=== PATIENT | female | born 1970 | race Caucasian/White ===

== ENCOUNTER 2020-09-07 15:33 | Outpatient (REF) | payer MEDICAID, SELFPAY | END 2020-09-07 15:34 | disposition home or self-care (01) | LOC: HO.HAP 15:33 | PROVIDERS: PCP Hospitalist; Referring Provider Hospitalist; Visit Provider Hospitalist | DX: H90.3 Sensorineural hearing loss, bilateral (principal); Z46.1 Encounter for fitting and adjustment of hearing aid | CPT/HCPCS: V5266 ==

== ENCOUNTER 2020-12-01 13:54 | Outpatient (REF) | payer MEDICAID, SELFPAY | END 2020-12-01 13:55 | disposition home or self-care (01) | LOC: HO.HAP 13:54 | PROVIDERS: Visit Provider Hospitalist | DX: Z46.1 Encounter for fitting and adjustment of hearing aid (principal) | CPT/HCPCS: V5266 ==

== ENCOUNTER 2021-02-09 10:51 | Outpatient (REF) | payer MEDICAID, SELFPAY ==
--- NOTE | 2021-02-09 11:10 | MHC.AU.P13 ---
Hearing Instrument Maintenance Date of Visit: 02/09/21 Right Ear: Malted Milk Masher: Phonak Model: Leticia M70-SP Serial Number: [id number] Repair Warranty: 08/10/2023 Battery Size: 13 Tubing: Tube lock tubing Type of Mold: Colin standard Canal mold Type of Wax Guard: Left Ear: Malted Milk Masher: Phonak Model: Leticia M70-SP Serial Number: [id number] Repair Warranty: 08/10/2023 Loss and Damage Warranty: Service Plan: Battery Size: 13 Type of Mold: Colin standard Canal mold Follow-Up Summary: Hearing aids brought in for tubing change. Hearing aids cleaned and tubings changed - both amplifying clearly. Recommendations: Recommendations: Hearing instrument follow-up or maintenance as needed. Signature: Provider: MYNOR Skaggs
== END 2021-02-09 10:52 | disposition home or self-care (01) ==
LOC: HO.HAP 10:51
PROVIDERS: Visit Provider Hospitalist
DX: Z46.1 Encounter for fitting and adjustment of hearing aid (principal)
CPT/HCPCS: V5266

== ENCOUNTER 2021-02-09 11:20 | Outpatient (REF) | payer MEDICAID, SELFPAY | END 2021-02-09 11:21 | disposition home or self-care (01) | LOC: HO.MAMMO 11:20 | PROVIDERS: PCP Hospitalist; Visit Provider Nurse Practitioner Adult Health | DX: Z13.89 Encounter for screening for other disorder (principal) ==

== ENCOUNTER 2021-03-27 15:00 | Outpatient (REF) | payer MEDICAID, SELFPAY | END 2021-03-27 15:01 | disposition home or self-care (01) | LOC: HO.HAP 15:00 | PROVIDERS: Visit Provider Hospitalist | DX: Z13.89 Encounter for screening for other disorder (principal) ==

== ENCOUNTER 2021-04-04 15:44 | Outpatient (REF) | payer MEDICAID, SELFPAY | END 2021-04-04 15:45 | disposition home or self-care (01) | LOC: HO.HAP 15:44 | PROVIDERS: Visit Provider Hospitalist | DX: Z13.89 Encounter for screening for other disorder (principal) ==

== ENCOUNTER 2021-06-22 09:45 | Outpatient (REF) | payer MEDICAID, SELFPAY ==
--- NOTE | 2021-06-22 16:06 | MHC.AU.AHA ---
Adult Audiological Evaluation Date of Visit: 06/22/21 Reason for Appointment: Audiological re-evaluation due to monitor the status of Ms. Olmstead's hearing loss. She has a longstanding history of bilateral mixed hearing loss and hearing aid use. She denies any significant changes to her hearing, but notes that she typically uses the volume control on her hearing aids to turn them up as loud as she can. She denies any changes to her medical history since her last visit. [place] [facility] [place] Bilateral moderately-severe to profound mixed hearing loss with the left ear poorer from 4361-7410 Hz. Ear History: Previous Ear Surgery: Both Ears Medical History: Medical History: Unremarkable Hearing Instrument History- Right Ear: Systems Qa Analyst: ECKey Model: Blue Tornado M70-SP Serial Number: [id number] Battery Size: 13 Repair Warranty: 08/10/2023 Loss and Damage Warranty: 08/10/2023 Dispensed By: [facility] Date of Fittin05/19/2020 Hearing Instrument History- Left Ear: Systems Qa Analyst: Phonak Model: Leticia M70-SP Serial Number: [id number] Battery Size: 13 Warranty: 08/10/2023 Loss and Damage Warranty: 08/10/2023 Dispensed By: [facility] Date of Fittin05/19/2020 Otoscopy: Right Ear: Surgical ear, clear canal Left Ear: Surgical ear, clear canal Tympanometry: Tympanometry performed due to: History of middle ear dysfunction Right Ear: Non-compliant Middle Ear System (Type B) Left Ear: Non-compliant Middle Ear System (Type B) Hearing Evaluation: Transducer(s) Used: Insert Earphones, Bone Conduction Method: Conventional Audiometry Stimuli Used: Pure Tones Right Ear: Description of Hearing: Moderately severe sloping to profound mixed hearing loss from 250-8000 Hz. Left Ear: Description of Hearing: Severe to profound mixed hearing loss from 250-8000 Hz. Hearing in the left ear is 10-20+ dBHL worse than the right ear at 250 and 3008-4497 Hz. Speech Recognition Threshold (SRT): Method Used: Monitored Live Voice Stimuli Used: Spondee Words Right Ear: 65 dBHL Left Ear: 70 dBHL Word Discrimination: Method: Recorded Lists Word Lists Used: NU-6 Right Ear: 72% at 100 dBHL Left Ear: 84% at 100 dBHL Comparison: Compared to the most recent evaluation: Thresholds have decreased in the left ear. Recommendations: Audiological re-evaluation in one year. Hearing aid maintenance performed today. Hearing aid(s) reprogrammed with updated test results. New earmolds ordered today. Diagnosis: Primary Diagnosis: H90.6 Mixed Hearing Loss, Bilateral Services Performed: Comprehensive Audiological Evaluation (CPT 32657) Tympanometry (CPT 13920) Signature: Provider: Marina Lima, CCC-A
== END 2021-06-22 09:46 | disposition home or self-care (01) ==
LOC: HO.SH 09:45
PROVIDERS: Visit Provider Hospitalist
DX: Z46.1 Encounter for fitting and adjustment of hearing aid (principal); H90.6 Mixed conductive and sensorineural hearing loss, bilateral
CPT/HCPCS: 92557; 92567; 92593; V5266; V5275

== ENCOUNTER 2021-07-24 16:49 | Outpatient (REF) | payer MEDICAID, SELFPAY | END 2021-07-24 16:50 | disposition home or self-care (01) | LOC: HO.HAP 16:49 | PROVIDERS: Visit Provider Hospitalist | DX: Z46.1 Encounter for fitting and adjustment of hearing aid (principal); H90.6 Mixed conductive and sensorineural hearing loss, bilateral | CPT/HCPCS: V5264 ==

== ENCOUNTER 2021-08-11 11:04 | Outpatient (REF) | payer MEDICAID, SELFPAY ==
--- NOTE | ~2021-08-11 | MM_ITS ---
EXAMINATION: MM SCREENING DIGITAL BREAST TOMOSYNTHESIS, BILATERAL CLINICAL INFORMATION: Screening. Asymptomatic. The lifetime risk of breast cancer based on the Tyrer-Cuzick Model is 6%. COMPARISON: Mammography: 05/05/2020, 04/27/2020, 04/22/2019, 03/27/2018 TECHNIQUE: Digital breast tomosynthesis is performed in both the craniocaudal and mediolateral oblique views along with computer-aided detection (CAD). Synthesized 2D images are generated from the tomosynthesis. Additional right CC view is provided. FINDINGS: The breasts are almost entirely fatty (ACR BI-RADS breast composition Category a). Background stromal and fibroglandular densities are stable. No developing density. There are no significant masses, abnormal calcifications, or other abnormalities. MM/MM tomosynthesis screening BI IMPRESSION: No mammographic evidence of malignancy. ASSESSMENT: BI-RADS 1: Negative RECOMMENDATION: Routine annual mammography screening. This patient's information was entered into a reminder system with a target due date for their next mammogram.
== END 2021-08-11 11:05 | disposition home or self-care (01) ==
LOC: HO.MAMMO 11:04
PROVIDERS: Visit Provider Hospitalist
DX: Z12.31 Encounter for screening mammogram for malignant neoplasm of breast (principal)
CPT/HCPCS: 77063; 77067

== ENCOUNTER 2021-09-25 15:50 | Outpatient (REF) | payer MEDICAID, SELFPAY | END 2021-09-25 15:51 | disposition home or self-care (01) | LOC: HO.HAP 15:50 | PROVIDERS: Visit Provider Hospitalist | DX: Z46.1 Encounter for fitting and adjustment of hearing aid (principal); H90.6 Mixed conductive and sensorineural hearing loss, bilateral | CPT/HCPCS: V5266 ==

== ENCOUNTER 2021-10-31 10:47 | Outpatient (REF) | payer MEDICAID, SELFPAY ==
[2021-10-31 11:18] LABS: COVID-19 Test Positive (Negative)
== END 2021-10-31 10:48 | disposition home or self-care (01) ==
LOC: HO.LAB 10:47
PROVIDERS: Visit Provider Internal Medicine
DX: Z20.822 Contact with and (suspected) exposure to COVID-19 (principal)
CPT/HCPCS: 87635; C9803

== ENCOUNTER 2021-11-17 11:28 | Outpatient (REF) | payer MEDICAID, SELFPAY ==
--- NOTE | 2021-11-17 13:32 | MHC.AU.HFU ---
Hearing Instrument Follow-Up- Binaural Date of Visit: 11/17/21 Right Ear: Bread Panner: Phonak Model: Lteicia M70-SP Serial Number: [id number] Repair Warranty: 08/10/2023 Loss and Damage Warranty: 08/10/2023 Battery Size: 13 Color: Cherokee Type of Mold: Colin standard Canal mold Dispensed By: [facility] Date of Fittin05/19/2020 Left Ear: Bread Panner: Phonak Model: Leticia M70-SP Serial Number: [id number] Repair Warranty: 08/10/2023 Loss and Damage Warranty: 08/10/2023 Battery Size: 13 Color: Cherokee Type of Mold: Colin standard Canal mold Dispensed By: [facility] Date of Fittin05/19/2020 Follow-Up Summary: Patient requested tubing change, as her tubing was starting to become brittle. Molds cleaned and tubing replaced on both hearing aids. General maintenance performed on both instruments. Hearing aids are amplifying clearly. Recommendations: Recommendations: Hearing instrument follow-up or maintenance as needed. Diagnosis Code(s): Primary Diagnosis: H90.3 Bilateral Sensorineural Hearing Loss Signature: Provider: Marina Brooks, CCC-A
== END 2021-11-17 11:29 | disposition home or self-care (01) ==
LOC: HO.HAP 11:28
PROVIDERS: Visit Provider Hospitalist
DX: Z46.1 Encounter for fitting and adjustment of hearing aid (principal); H90.3 Sensorineural hearing loss, bilateral
CPT/HCPCS: 92593

== ENCOUNTER 2021-12-21 14:44 | Outpatient (REF) | payer MEDICAID, SELFPAY ==
--- NOTE | 2021-12-21 15:40 | MHC.AU.HFU ---
Hearing Instrument Follow-Up- Binaural Date of Visit: 12/21/21 Right Ear: Nitric Acid Concentrator Operator: Phonak Model: Leticia M70-SP Serial Number: [id number] Repair Warranty: 08/10/2023 Loss and Damage Warranty: 08/10/2023 Battery Size: 13 Color: Hosmer Tubing: Tube lock tubing Type of Mold: Colin standard Canal mold Type of Wax Guard: Dispensed By: [facility] Date of Fittin05/19/2020 Left Ear: Nitric Acid Concentrator Operator: Phonak Model: Leticia M70-SP Serial Number: [id number] Repair Warranty: 08/10/2023 Loss and Damage Warranty: 08/10/2023 Battery Size: 13 Color: Hosmer Tubing: Tube lock tubing Type of Mold: Colin standard Canal mold Type of Wax Guard: Dispensed By: [facility] Date of Fittin05/19/2020 Follow-Up Summary: Patient reports the earmolds come off the tubing. Changed to 13 tube lock for both aids. Patient will try and schedule appointment if any concerns. Dispensed 42 batteries. Recommendations: Hearing instrument follow-up or maintenance as needed.Please contact our clinic with any questions or concerns. Diagnosis Code(s): Primary Diagnosis: H90.3 Bilateral Sensorineural Hearing Loss Services Performed: Number of Individual Battery Cells: 42 OBANDO Non-Quantity Charges: HANC: NonBillable Event Signature:Provider: Harish Nair, [facility]
== END 2021-12-21 14:45 | disposition home or self-care (01) ==
LOC: HO.HAP 14:44
PROVIDERS: Visit Provider Hospitalist
DX: Z46.1 Encounter for fitting and adjustment of hearing aid (principal); H90.3 Sensorineural hearing loss, bilateral
CPT/HCPCS: V5266

== ENCOUNTER 2022-02-16 11:31 | Outpatient (REF) | payer MEDICAID, SELFPAY | END 2022-02-16 11:32 | disposition home or self-care (01) | LOC: HO.HAP 11:31 | PROVIDERS: PCP Physician Assistant; Visit Provider Physician Assistant | DX: Z46.1 Encounter for fitting and adjustment of hearing aid (principal); H90.3 Sensorineural hearing loss, bilateral | CPT/HCPCS: 92593; V5275 ==

== ENCOUNTER 2022-02-27 12:48 | Outpatient (REF) | payer MEDICAID, SELFPAY | END 2022-02-27 12:49 | disposition home or self-care (01) | LOC: HO.HAP 12:48 | PROVIDERS: Visit Provider Physician Assistant | DX: Z46.1 Encounter for fitting and adjustment of hearing aid (principal); H90.3 Sensorineural hearing loss, bilateral | CPT/HCPCS: 92593 ==

== ENCOUNTER 2022-03-07 13:10 | Outpatient (REF) | payer MEDICAID, SELFPAY ==
--- NOTE | 2022-03-07 15:19 | MHC.AU.FUL ---
Hearing Instrument Follow-Up Date of Visit: 03/07/22 Left Ear: Roller Turner: Phonak Model: Leticia M70-SP Serial Number: [id number] Repair Warranty: 08/10/2023 Loss and Damage Warranty: 08/10/2023 Battery Size: 13 Color: Circle Tubing: Tube lock tubing Type of Mold: Colin standard Canal mold Type of Wax Guard: Dispensed By: [facility] Date of Fittin05/19/2020 Follow-Up Summary: Patient reports over the past few days, the left aid has static sound quality. After last visit and for the next few days the aids were fine, but then changed over the very humid weekend. Visual inspection indicated moisture in the left tubing. Changed tubing, but aid still had static. Placed aid in the dryer for several minutes with some help, but still had static. Sending aid out for repair under warranty. Programmed a left Phonak Leticia B-SP loaner aid to use with her current earmold. Recommendations (Other): Still waiting for binaural new earmolds. Contact patient when repair in. Diagnosis Code(s):Primary Diagnosis: H90.3 Bilateral Sensorineural Hearing Loss Services Performed:OBANDO Non-Quantity Charges: HANC: NonBillable Event Signature:Provider: Harish Nair, CCC-A
== END 2022-03-07 13:11 | disposition home or self-care (01) ==
LOC: HO.HAP 13:10
PROVIDERS: Visit Provider Physician Assistant
DX: Z13.89 Encounter for screening for other disorder (principal)

== ENCOUNTER 2022-03-21 10:24 | Outpatient (REF) | payer MEDICAID, SELFPAY | END 2022-03-21 10:25 | disposition home or self-care (01) | LOC: HO.HAP 10:24 | PROVIDERS: Visit Provider Physician Assistant | DX: Z46.1 Encounter for fitting and adjustment of hearing aid (principal); H90.3 Sensorineural hearing loss, bilateral | CPT/HCPCS: V5264 ==

== ENCOUNTER 2022-03-23 12:39 | Outpatient (REF) | payer MEDICAID, SELFPAY | END 2022-03-23 12:40 | disposition home or self-care (01) | LOC: HO.HAP 12:39 | PROVIDERS: Visit Provider Physician Assistant | DX: Z46.1 Encounter for fitting and adjustment of hearing aid (principal); H90.3 Sensorineural hearing loss, bilateral | CPT/HCPCS: V5266 ==

== ENCOUNTER 2022-06-25 12:58 | Outpatient (REF) | payer MEDICAID, SELFPAY | END 2022-06-25 12:59 | disposition home or self-care (01) | LOC: HO.HAP 12:58 | PROVIDERS: Visit Provider Physician Assistant | DX: Z46.1 Encounter for fitting and adjustment of hearing aid (principal); H90.3 Sensorineural hearing loss, bilateral | CPT/HCPCS: V5266 ==

== ENCOUNTER 2022-08-13 09:14 | Outpatient (REF) | payer MEDICAID, SELFPAY ==
--- NOTE | ~2022-08-13 | MM_ITS ---
EXAMINATION: MM SCREENING DIGITAL BREAST TOMOSYNTHESIS, BILATERAL CLINICAL INFORMATION: Screening. Asymptomatic. The lifetime risk of breast cancer based on the Tyrer-Cuzick Model is 6.7%. COMPARISON: Mammography: August 11, 2021 and studies dating back to January 24, 2015 TECHNIQUE: Digital breast tomosynthesis is performed in both the craniocaudal and mediolateral oblique views along with computer-aided detection (CAD). Synthesized 2D images are generated from the tomosynthesis. FINDINGS: The breasts are almost entirely fatty (ACR BI-RADS breast composition Category a). There are no significant masses, abnormal calcifications, or other abnormalities. MM/MM tomosynthesis screening BI IMPRESSION: No significant changes from prior exam. ASSESSMENT: BI-RADS 1: Negative RECOMMENDATION: Routine annual mammography screening. This patient's information was entered into a reminder system with a target due date for their next mammogram.
== END 2022-08-13 09:15 | disposition home or self-care (01) ==
LOC: HO.MAMMO 09:14
PROVIDERS: Visit Provider Physician Assistant
DX: Z12.31 Encounter for screening mammogram for malignant neoplasm of breast (principal)
CPT/HCPCS: 77063; 77067

== ENCOUNTER 2022-08-20 09:57 | Outpatient (REF) | payer MEDICAID, SELFPAY | END 2022-08-20 09:58 | disposition home or self-care (01) | LOC: HO.SH 09:57 | PROVIDERS: Visit Provider Internal Medicine | DX: Z01.118 Encounter for examination of ears and hearing with other abnormal findings (principal); Z46.1 Encounter for fitting and adjustment of hearing aid; H90.6 Mixed conductive and sensorineural hearing loss, bilateral | CPT/HCPCS: 92557; 92593; 99499 ==

== ENCOUNTER 2022-09-24 15:35 | Outpatient (REF) | payer MEDICAID, SELFPAY | END 2022-09-24 15:36 | disposition home or self-care (01) | LOC: HO.HAP 15:35 | PROVIDERS: Visit Provider Physician Assistant | DX: Z46.1 Encounter for fitting and adjustment of hearing aid (principal); H90.6 Mixed conductive and sensorineural hearing loss, bilateral | CPT/HCPCS: V5266 ==

== ENCOUNTER 2022-09-25 12:35 | Outpatient (REF) | payer MEDICAID, SELFPAY | END 2022-09-25 12:36 | disposition home or self-care (01) | LOC: HO.HAP 12:35 | PROVIDERS: Visit Provider Physician Assistant | DX: Z13.89 Encounter for screening for other disorder (principal) ==

== ENCOUNTER 2022-10-16 12:42 | Outpatient (REF) | payer MEDICAID, SELFPAY | END 2022-10-16 12:43 | disposition home or self-care (01) | LOC: HO.HAP 12:42 | PROVIDERS: Visit Provider Physician Assistant | DX: Z13.89 Encounter for screening for other disorder (principal) ==

== ENCOUNTER 2022-12-06 10:10 | Outpatient (REF) | payer MEDICAID, SELFPAY | END 2022-12-06 10:11 | disposition home or self-care (01) | LOC: HO.HAP 10:10 | PROVIDERS: Visit Provider Physician Assistant | DX: Z46.1 Encounter for fitting and adjustment of hearing aid (principal); H90.3 Sensorineural hearing loss, bilateral | CPT/HCPCS: 92593; 99499 ==

== ENCOUNTER 2022-12-24 10:07 | Outpatient (REF) | payer MEDICAID, SELFPAY ==
--- NOTE | 2022-12-27 09:52 | MHC.AU.HA3 ---
Hearing Instrument Follow-Up- Binaural Date of Visit: 12/24/22 Right Ear:Weston, , Color, Serial Number: Wallace Kelly M70-SP, Crystal Serial#[id number] English Language Arts Teacher Repair Warranty: 08/10/2023 English Language Arts Teacher Loss and Damage Warranty: 08/10/2023 [facility] Service Plan: 05/19/2021 Battery Size: 13 Earmold/Dome/CShell/SlimTip:Microsonic standard Canal mold Type of Wax Guard: Dispensed By: [facility] Date of Fittin05/19/2020 Left Ear:Weston, , Color, Serial Number: Wallace Dave70-SP, Crystal Serial#[id number] English Language Arts Teacher Repair Warranty: 08/10/2023 English Language Arts Teacher Loss and Damage Warranty: 08/10/2023 [facility] Service Plan: 05/19/2021 Battery Size: 13 Earmold/Dome/CShell/SlimTip: Microsonic standard Canal mold Type of Wax Guard: Dispensed By: [facility] Date of Fittin05/19/2020 Follow-Up Summary: Patient reports intermittent hissing noises and muffled sound from both aids right aid greater than left. Listening check in office did not hear the hiss. Cleaned aids, microphones, contacts and changed tubing with no change in sound quality. After further questioning patient of specific details of when the hissing is heard, she was not able to provide situations in which the noise is heard. Connected aids to TIFFANY to check settings. The MPO looked low for her loss. Increased overall MPO only 9 dB with patient reporting significant improvement in sound quality while in office. Scheduled F/U for 12/31/2022, but told patient she can cancel the appointment if the problems are resolved with today's changes. Diagnosis Code(s):Primary Diagnosis: H90.3 Bilateral Sensorineural Hearing Loss Signature:Provider: Jovan Nair, [facility]
== END 2022-12-24 10:08 | disposition home or self-care (01) ==
LOC: HO.HAP 10:07
PROVIDERS: Visit Provider Physician Assistant
DX: Z13.89 Encounter for screening for other disorder (principal)

== ENCOUNTER 2022-12-31 09:59 | Outpatient (REF) | payer MEDICAID, SELFPAY | END 2022-12-31 10:00 | disposition home or self-care (01) | LOC: HO.HAP 09:59 | PROVIDERS: Visit Provider Physician Assistant | DX: Z13.89 Encounter for screening for other disorder (principal) ==

== ENCOUNTER 2023-01-29 14:39 | Outpatient (REF) | payer OTHER, SELFPAY | END 2023-01-29 14:40 | disposition home or self-care (01) | LOC: HO.HAP 14:39 | PROVIDERS: Visit Provider Physician Assistant | DX: Z46.1 Encounter for fitting and adjustment of hearing aid (principal); H90.3 Sensorineural hearing loss, bilateral | CPT/HCPCS: V5266 ==

== ENCOUNTER 2023-02-19 09:40 | Outpatient (REF) | payer OTHER, SELFPAY | END 2023-02-19 09:41 | disposition home or self-care (01) | LOC: HO.HAP 09:40 | PROVIDERS: Visit Provider Physician Assistant | DX: Z46.1 Encounter for fitting and adjustment of hearing aid (principal); H90.3 Sensorineural hearing loss, bilateral | CPT/HCPCS: 99499 ==

== ENCOUNTER 2023-05-13 15:48 | Outpatient (REF) | payer OTHER, SELFPAY | END 2023-05-13 15:49 | disposition home or self-care (01) | LOC: HO.HAP 15:48 | PROVIDERS: Visit Provider Physician Assistant | DX: Z46.1 Encounter for fitting and adjustment of hearing aid (principal); H90.3 Sensorineural hearing loss, bilateral | CPT/HCPCS: V5266 ==

== ENCOUNTER 2023-05-17 10:35 | Outpatient (REF) | payer OTHER, SELFPAY | END 2023-05-17 10:36 | disposition home or self-care (01) | LOC: HO.HAP 10:35 | PROVIDERS: Visit Provider Physician Assistant | DX: Z46.1 Encounter for fitting and adjustment of hearing aid (principal); H90.3 Sensorineural hearing loss, bilateral | CPT/HCPCS: 92593 ==

== ENCOUNTER 2023-07-19 12:37 | Outpatient (REF) | payer OTHER, SELFPAY | END 2023-07-19 12:38 | disposition home or self-care (01) | LOC: HO.HAP 12:37 | PROVIDERS: Visit Provider Physician Assistant | DX: Z46.1 Encounter for fitting and adjustment of hearing aid (principal); H90.3 Sensorineural hearing loss, bilateral | CPT/HCPCS: V5266 ==

== ENCOUNTER 2023-07-31 08:49 | Outpatient (REF) | payer OTHER, SELFPAY | END 2023-07-31 08:50 | disposition home or self-care (01) | LOC: HO.HAP 08:49 | PROVIDERS: Visit Provider Physician Assistant | DX: Z13.89 Encounter for screening for other disorder (principal) ==

== ENCOUNTER 2023-09-13 11:58 | Outpatient (REF) | payer OTHER, SELFPAY ==
--- NOTE | 2023-09-13 13:51 | MHC.AU.HA3 ---
Hearing Instrument Follow-Up- Binaural Date of Visit: 09/13/23 Oxygen Therapy Teacher Used: Right Ear: Weston, , Color, Serial Number: Wallace Kelly M70-SPCrystal Serial#[id number] Insurance Inspector Repair Warranty: 08/10/2023 Insurance Inspector Loss and Damage Warranty: 08/10/2023 [facility] Service Plan: 05/19/2021 Battery Size: 13 Utility Worker Forge/Slim Tube: Earmold/Dome/CShell/SlimTip:Microsonic standard Canal mold Type of Wax Guard: Dispensed By: [facility] Date of Fittin05/19/2020 Left Ear: Weston, , Color, Serial Number: Wallace Kelly M70-SPCrystal Serial#[id number] Insurance Inspector Repair Warranty: 08/10/2023 Insurance Inspector Loss and Damage Warranty: 08/10/2023 [facility] Service Plan: 05/19/2021 Battery Size: 13 Utility Worker Forge/Slim Tube: Earmold/Dome/CShell/SlimTip: Microsonic standard Canal mold Type of Wax Guard: Dispensed By: [facility] Date of Fittin05/19/2020 Follow-Up Summary: Aleida is here for a retubing and impressions for new molds; her current molds do not fit comfortably and fall out often. Impressions taken without incident. Retubed aids, cleaned earmolds, aids; listening check ok after cleaning. She would also like to have a new hearing test, states she already requested a doctors order. Will call to schedule test and earmold fitting once they arrive. Recommendations: Recommendations: Patient will be contacted when materials have arrived. Recommendations (Other): Diagnosis Code(s): Primary Diagnosis: H90.6 Mixed Hearing Loss, Bilateral Secondary Diagnosis: Signature: Student/Clinical Fellow: I have reviewed/agreed with student/fellow documentation: Provider: Marina Skinner, [facility]
--- NOTE | 2023-09-13 13:51 | MHC.AU.HA3 ---
Hearing Instrument Follow-Up- Binaural Date of Visit: 09/13/23 Right Ear: Weston, , Color, Serial Number: Wallace Kelly M70-SP, Crystal Serial#[id number] Marketing Engineer Repair Warranty: 08/10/2023 Marketing Engineer Loss and Damage Warranty: 08/10/2023 [facility] Service Plan: 05/19/2021 Battery Size: 13 Aluminum Hydroxide Process Operator/Slim Tube: Earmold/Dome/CShell/SlimTip:Microsonic standard Canal mold Dispensed By: [facility] Date of Fittin05/19/2020 Left Ear: Weston, , Color, Serial Number: Wallace Dvae70-SP, Crystal Serial#[id number] Marketing Engineer Repair Warranty: 08/10/2023 Marketing Engineer Loss and Damage Warranty: 08/10/2023 [facility] Service Plan: 05/19/2021 Battery Size: 13 Aluminum Hydroxide Process Operator/Slim Tube: Earmold/Dome/CShell/SlimTip: Microsonic standard Canal mold Dispensed By: [facility] Date of Fittin05/19/2020 Follow-Up Summary: Aleida is here for a retubing and impressions for new molds; her current molds do not fit comfortably and fall out often. Impressions taken without incident. Retubed aids, cleaned earmolds, aids; listening check ok after cleaning. She would also like to have a new hearing test, states she already requested a doctors order. Will call to schedule test and earmold fitting once they arrive. Recommendations: Recommendations: Patient will be contacted when materials have arrived. Diagnosis Code(s): Primary Diagnosis: H90.6 Mixed Hearing Loss, Bilateral Signature: Provider: Marina Skinner, [facility]
== END 2023-09-13 11:59 | disposition home or self-care (01) ==
LOC: HO.HAP 11:58
PROVIDERS: Visit Provider Physician Assistant
DX: Z46.1 Encounter for fitting and adjustment of hearing aid (principal); H90.6 Mixed conductive and sensorineural hearing loss, bilateral
CPT/HCPCS: 92593; 99499; V5266; V5275

== ENCOUNTER 2023-09-23 09:42 | Outpatient (REF) | payer OTHER, SELFPAY | END 2023-09-23 09:43 | disposition home or self-care (01) | LOC: HO.MAMMO 09:42 | PROVIDERS: PCP Physician Assistant; Visit Provider Physician Assistant | DX: Z12.31 Encounter for screening mammogram for malignant neoplasm of breast (principal) | CPT/HCPCS: 77063; 77067 ==

== ENCOUNTER → 2023-09-23 10:30 | Outpatient (BNV) | payer OTHER, SELFPAY | PROVIDERS: PCP Physician Assistant; Visit Provider Radiology Diagnostic Radiology | DX: Z12.31 Encounter for screening mammogram for malignant neoplasm of breast (principal) | CPT/HCPCS: 77063; 77067 ==

== ENCOUNTER 2023-10-23 11:10 | Outpatient (REF) | payer OTHER, SELFPAY | END 2023-10-23 11:11 | disposition home or self-care (01) | LOC: HO.HAP 11:10 | PROVIDERS: Visit Provider Physician Assistant | DX: Z46.1 Encounter for fitting and adjustment of hearing aid (principal); H90.6 Mixed conductive and sensorineural hearing loss, bilateral | CPT/HCPCS: V5264; V5266 ==

== ENCOUNTER 2023-11-07 10:26 | Outpatient (REF) | payer OTHER, SELFPAY | END 2023-11-07 10:27 | disposition home or self-care (01) | LOC: HO.SH 10:26 | PROVIDERS: Visit Provider Physician Assistant | DX: Z01.118 Encounter for examination of ears and hearing with other abnormal findings (principal); H90.6 Mixed conductive and sensorineural hearing loss, bilateral | CPT/HCPCS: 92557 ==

== ENCOUNTER 2023-12-27 10:32 | Outpatient (REF) | payer OTHER, SELFPAY | END 2023-12-27 10:33 | disposition home or self-care (01) | LOC: HO.HAP 10:32 | PROVIDERS: Visit Provider Physician Assistant | DX: Z46.1 Encounter for fitting and adjustment of hearing aid (principal); H90.6 Mixed conductive and sensorineural hearing loss, bilateral | CPT/HCPCS: V5266 ==

== ENCOUNTER 2024-02-19 08:32 | Outpatient (REF) | payer OTHER, SELFPAY ==
--- NOTE | 2024-02-19 10:58 | MHC.AU.HA3 ---
Hearing Instrument Follow-Up- Binaural Date of Visit: 02/19/24 Right Ear: Weston, Model, Color, Serial Number: Wallace Kelly M70-SPCrystal Serial#[id number] Charge Entry Clerk Repair Warranty: 08/10/2023 Charge Entry Clerk Loss and Damage Warranty: 08/10/2023 [facility] Service Plan: 05/19/2021 Battery Size: 13 Fire Protection Engineer/Slim Tube: Earmold/Dome/CShell/SlimTip:Microsonic standard Canal mold Type of Wax Guard: Dispensed By: [facility] Date of Fittin05/19/2020 Left Ear: Weston, Model, Color, Serial Number: Wallace Dave70-SPCrystal Serial#[id number] Charge Entry Clerk Repair Warranty: 08/10/2023 Charge Entry Clerk Loss and Damage Warranty: 08/10/2023 [facility] Service Plan: 05/19/2021 Battery Size: 13 Fire Protection Engineer/Slim Tube: Earmold/Dome/CShell/SlimTip: Microsonic standard Canal mold Type of Wax Guard: Dispensed By: [facility] Date of Fittin05/19/2020 Follow-Up Summary: Here for hearing aid clean and tubing change. Requested VC increase, reports she turns them up every day. Cleaned aids, earmolds, replaced tubing. Listening check positive. Aleida was getting some feedback from the right side. Changed tonehook, re-tubed again to ensure good fit and correct length. Still getting some feedback, especially with volume increase. Ran feedback manager data warehousing and some gain was cut away to reduce feedback. Suggested a more occluding earmold style to allow for increased gain with reduced risk of feedback. Suggested shell style. Aleida is willing to try it. Ordering new earmolds from scans on file. Recommendations: Recommendations: Patient will be contacted when materials have arrived. Recommendations: Run feedback and adjust aids at earmold pick up man. Diagnosis Code(s): Primary Diagnosis: H90.6 Mixed Hearing Loss, Bilateral Signature: Provider: Jovan Alvarez, [facility]
== END 2024-02-19 08:33 | disposition home or self-care (01) ==
LOC: HO.HAP 08:32
PROVIDERS: Visit Provider Physician Assistant
DX: Z46.1 Encounter for fitting and adjustment of hearing aid (principal); H90.6 Mixed conductive and sensorineural hearing loss, bilateral
CPT/HCPCS: 92593; 99499; V5266

== ENCOUNTER 2024-03-13 09:14 | Outpatient (REF) | payer OTHER, SELFPAY ==
--- NOTE | 2024-03-13 10:09 | MHC.AU.HA3 ---
Hearing Instrument Follow-Up- Binaural Date of Visit: 03/13/24 Right Ear: Weston, Model, Color, Serial Number: Wallace Kelly M70-SP, Crystal Serial#[id number] Leaf Binner Repair Warranty: 08/10/2023 [employer] Loss and Damage Warranty: 08/10/2023 [facility] Service Plan: 05/19/2021 Battery Size: 13 Earmold/Dome/CShell/SlimTip:Microsonic silicone shell Dispensed By: [facility] Date of Fittin05/19/2020 Left Ear: Weston, Model, Color, Serial Number: Wallace Kelly M70-SP, Crystal Serial#[id number] Leaf Binner Repair Warranty: 08/10/2023 [employer] Loss and Damage Warranty: 08/10/2023 [facility] Service Plan: 05/19/2021 Battery Size: 13 Earmold/Dome/CShell/SlimTip: Microsonic silicone shell Dispensed By: [facility] Date of Fittin05/19/2020 Follow-Up Summary: Dispensed new silicone shell earmolds. Good subjective comfort and benefit reported. Ran feedback- big improvement over the canal molds she had been wearing. Practiced insertion in removal. Recommendations: Recommendations: Hearing instrument maintenance in 6 months, or sooner if needed. Diagnosis Code(s): Primary Diagnosis: H90.6 Mixed Hearing Loss, Bilateral Signature: Provider: Jovan Alvarez, CCC-A
== END 2024-03-13 09:15 | disposition home or self-care (01) ==
LOC: HO.HAP 09:14
PROVIDERS: Visit Provider Physician Assistant
DX: Z46.1 Encounter for fitting and adjustment of hearing aid (principal); H90.6 Mixed conductive and sensorineural hearing loss, bilateral
CPT/HCPCS: V5264

== ENCOUNTER 2024-04-03 11:44 | Outpatient (REF) | payer OTHER, SELFPAY | END 2024-04-03 11:45 | disposition home or self-care (01) | LOC: HO.HAP 11:44 | PROVIDERS: Visit Provider Physician Assistant | DX: Z46.1 Encounter for fitting and adjustment of hearing aid (principal); H90.6 Mixed conductive and sensorineural hearing loss, bilateral | CPT/HCPCS: V5266 ==

== ENCOUNTER 2024-05-27 16:05 | Outpatient (REF) | payer OTHER, SELFPAY | END 2024-05-27 16:06 | disposition home or self-care (01) | LOC: HO.HAP 16:05 | PROVIDERS: Visit Provider Physician Assistant | DX: Z46.1 Encounter for fitting and adjustment of hearing aid (principal); H90.6 Mixed conductive and sensorineural hearing loss, bilateral | CPT/HCPCS: V5266 ==

== ENCOUNTER 2024-07-26 13:11 | Emergency (ER) | payer OTHER, SELFPAY ==
--- NOTE | ~2024-07-26 | XR_ITS ---
RADIOGRAPH RIGHT ANKLE AND RIGHT FOOT CLINICAL HISTORY: Fall. COMPARISON: Radiograph right foot 09/22/2019. TECHNIQUE: 2 views of the right ankle and 3 views of the right foot. FINDINGS: No acute fracture or subluxation. Mild multifocal degenerative osteoarthritis. Diffuse soft tissue swelling. No unexpected radiopaque foreign bodies. XR/XR foot RT min 3V IMPRESSION: 1. No acute fracture or subluxation. 2. Mild multifocal degenerative osteoarthritis. 3. Diffuse soft tissue swelling. Electronically signed by: Sandra John MD 07/26/2024 03:33 PM EDT
--- NOTE | ~2024-07-26 | XR_ITS ---
RADIOGRAPH RIGHT ANKLE AND RIGHT FOOT CLINICAL HISTORY: Fall. COMPARISON: Radiograph right foot 09/22/2019. TECHNIQUE: 2 views of the right ankle and 3 views of the right foot. FINDINGS: No acute fracture or subluxation. Mild multifocal degenerative osteoarthritis. Diffuse soft tissue swelling. No unexpected radiopaque foreign bodies. XR/XR ankle RT min 3V IMPRESSION: 1. No acute fracture or subluxation. 2. Mild multifocal degenerative osteoarthritis. 3. Diffuse soft tissue swelling. Electronically signed by: Sandra John MD 07/26/2024 03:33 PM EDT
[2024-07-26 13:17] VITALS: BP 152/98; PULSE 76; RESP 16; TEMP 36; O2SAT 96; BMI 44.0
--- NOTE | 2024-07-26 13:18 | ED.LOWEXIN ---
HPI - Extremity Injury (Lower) General Chief Complaint: Extremity Injury, Lower Stated Complaint: R foot pain Time Seen by Provider: 07/26/24 13:47 Source: patient Mode of arrival: ambulatory Limitations: no limitations History of Present Illness ED Provider: Freida Canela PA-C HPI Narrative: 53-year-old female presents to ER for evaluation of right lateral ankle pain after tripping and rolling her ankle on a mat yesterday. She states she went for a walk today which exacerbated the pain. Patient reports the pain is mostly on the outside of the right ankle, worse with plantar and dorsiflexion, weight-bearing. She denies any numbness, tingling or weakness in the foot or ankle. No other injuries. She is able to bear weight but with discomfort. MD complaint: ankle injury Onset (ago): day(s) (1) Type of Injury: inversion Severity: moderate Relieving factors: NSAID, immobilization and rest Exacerbating factors: weight bearing, movement and palpation Context: walking Associated symptoms: ambulatory Other symptoms: none Treatments prior to arrival: NSAIDS Related Data Allergies Allergy/AdvReac Type Severity Reaction Status Date / Time No Known Allergies Allergy Verified 07/26/24 13:18 Review of Systems Review of Systems: Yes all other systems are reviewed and are negative [facility] Social History Social History Advance Directives: No Advance Directives Information Provided: No Physical Exam Vital Signs: Vital Signs: Last Vital Signs Temp 96.8 F 07/26/24 13:17 Pulse 76 07/26/24 13:17 Resp 16 07/26/24 13:17 BP 152/98 H 07/26/24 13:17 Pulse Ox 96 07/26/24 13:17 O2 Del Method Room Air 07/26/24 13:17 BMI result Body Mass Index 44.0 Appearance: Alert. Oriented X3. No acute distress. HEENT: normal inspection CVS: Normal heart rate and rhythm. Pulses normal. Respiratory: No respiratory distress. Skin: Skin warm and dry. Normal skin color. Normal skin turgor. No rashes. Extremities: Right lateral ankle with moderate swelling of the malleolus, mild tenderness associated with this, no ecchymosis. Full range of motion of the ankle with pain upon dorsiflexion and plantar flexion. Metatarsals are nontender. Foot is warm and well perfused with 2+ DP and PT pulses. Neuro: Oriented X 3. No motor deficit. No sensory deficit. Course Course Course Narrative: This is a Rapid Medical Examination (RME) performed by Meño Gaines PA-C in triage. Full HPI, ROS, assessment and treatment plan per primary provider in the Main ED. 53 yo female here for eval right foot and ankle pain x24 hours after mechanical trip and fall over a mat yesterday. no head strike or LOC. no thinners. + ambulating w/ steady gait. Plan: xrs Medical Decision Making Medical Decision Making MDM Narrative: 53-year-old female presents to the ER for evaluation of right ankle pain after she tripped over a mat yesterday and fell. She twisted the ankle. She has been ambulating on it with some discomfort X-ray does not show any acute fractures. Will treat for ankle sprain with Misha wrap, compression, rest, ice, elevation, NSAIDs and outpatient follow-up as needed. Differential Diagnosis Differential Diagnoses: The differential diagnosis associated with the presentation includes Ankle sprain, ankle strain, ligamentous injury, ankle fracture Independent Interpretation I performed an independent interpretation of an: Plain X-Ray Interpretation: No acute fracture of the ankle or foot Radiology Impression Discussion of test interpretation with radiology: I have reviewed the radiologist's reading. External Record Review External record reviewed: Prior outpatient labs Prescription Management I considered prescription management with: Pain Medication Discharge Plan Discharge Clinical Impression: Ankle sprain and strain Patient Disposition: Home, Self-Care Instructions: Ankle Sprain (DC) Additional Instructions: Your x-ray today was normal. Rest your ankle and elevate your foot when possible. Recommend MISHA wrap for support and compression. Use ice several times per day for the next 48 hours. You may bear weight as tolerated. If pain is too severe, use crutches until better. Take Motrin and/or Tylenol as needed for pain. Follow up with your doctor as needed. Interventions: ED Discharge Assessment Last Done: 07/26/24 15:45 Discharge Date/Time: 07/26/24 15:46 Print Language: Syriac
[2024-07-26 15:45] VITALS: BP 152/98; PULSE 76; RESP 16; TEMP 36; O2SAT 96
== END 2024-07-26 15:46 | disposition home or self-care (01) ==
PROVIDERS: Emergency Provider Emergency Medicine; PCP Physician Assistant
DX: S93.401A Sprain of unspecified ligament of right ankle, initial encounter (principal); M79.671 Pain in right foot; X58.XXXA Exposure to other specified factors, initial encounter; Y93.89 Activity, other specified; Y92.89 Other specified places as the place of occurrence of the external cause; Y99.8 Other external cause status
CPT/HCPCS: 73610; 73630; 99282; 99283

== ENCOUNTER 2024-07-30 08:58 | Outpatient (REF) | payer OTHER, SELFPAY ==
--- NOTE | 2024-07-30 15:11 | MHC.AU.HA3 ---
Hearing Instrument Follow-Up- Binaural Date of Visit: 07/30/24 Right Ear: Weston, Model, Color, Serial Number: Wallace Kelly M70-SP, Crystal Serial#[id number] Dental Technology Advisor Repair Warranty: 08/10/2023 Dental Technology Advisor Loss and Damage Warranty: 08/10/2023 [facility] Service Plan: 05/19/2021 Battery Size: 13 Earmold/Dome/CShell/SlimTip:Microsonic silicone shell Dispensed By: [facility] Date of Fittin05/19/2020 Left Ear: Weston, Model, Color, Serial Number: Wallace Kelly M70-SP, Crystal Serial#[id number] Dental Technology Advisor Repair Warranty: 08/10/2023 Dental Technology Advisor Loss and Damage Warranty: 08/10/2023 [facility] Service Plan: 05/19/2021 Battery Size: 13 Earmold/Dome/CShell/SlimTip: Microsonic silicone shell Dispensed By: [facility] Date of Fittin05/19/2020 Follow-Up Summary: Aleida is here for tubing change. Reports hearing aids have been working well. She reports concern that she may have an ear infection, notes discomfort and smelly discharge As. Otoscopy reveals red canals and TMs Au, discharge noted in canal As. Pt. called PCP to make an appointment. Cleaned and checked aids, cleaned earmolds, replaced tubing. Listening check positive. Encouraged to clean earmolds regularly due to possible ear infection. Aleida reports she used alcohol wipes on molds this AM and will continue to do so. Recommendations: Recommendations: Hearing instrument maintenance in 6 months, or sooner if needed. Diagnosis Code(s): Primary Diagnosis: H90.6 Mixed Hearing Loss, Bilateral Signature: Provider: Jovan Alvarez, [facility]
== END 2024-07-30 08:59 | disposition home or self-care (01) ==
LOC: HO.HAP 08:58
PROVIDERS: Visit Provider Physician Assistant
DX: Z46.1 Encounter for fitting and adjustment of hearing aid (principal); H90.6 Mixed conductive and sensorineural hearing loss, bilateral
CPT/HCPCS: 92593; 99499

== ENCOUNTER 2024-09-10 14:42 | Outpatient (REF) | payer OTHER, SELFPAY ==
--- OUTSIDE RECORDS SUMMARY | 2024-09-16 04:07 | XMS_ITS | Continuity of Care Document ---
Author Organization [facility] Joel lt Address [address] [place] [address]- Care Team Providers Care Accounts Collector Name Role Phone Ladi WHITE, Dana Rutledge Primary Care Physician Encounter [facility] [place] Date(s): 08/14/24 - 09/13/24 [facility] Adult [address] [place] [address]- Encounter Type: Triage Allergies, Adverse Reactions, Alerts Substance Criticality Severity Reaction Reaction Severity Status Grass Active Pollen Grass-mix Grass-mix Active Immunizations Given and Recorded Vaccine Date Status Refusal Reason zoster vaccine, inactivated 11/18/23 Recorded zoster vaccine, inactivated 11/05/22 Recorded influenza virus vaccine, inactivated 08/03/22 Jose rded influenza virus vaccine, inactivated 1 06/19/21 Re corded influenza virus vaccine, inactivated 06/17/19 Jose rded influenza virus vaccine, inactivated 2 07/29/18 Gi bailey influenza virus vaccine, inactivated 05/15/17 Jose rded influenza virus vaccine, inactivated 3 06/08/16 Re corded influenza virus vaccine, inactivated 4 07/11/15 Gi bailey influenza virus vaccine, inactivated 5 06/27/14 Gi bailey SARS-CoV-2 (COVID-19) mRNA BNT-162b2 vac 02/23/21 Given SARS-CoV-2 (COVID-19) mRNA BNT-162b2 vac 02/02/21 Given tetanus-diphtheria toxoids (Td) 06/16/20 Recorded Influenza Virus Vaccine (oldterm) 6 07/21/19 Recor ded pneumococcal 23-valent vaccine 09/07/14 Given Influenza Vaccine (oldterm) 7 11/11/13 Recorded tetanus/diphtheria/pertussis, acel(Tdap) 05/30/13 Given diphtheria/tetanus/pertussis, acel(DTaP) 06/26/12 Recorded 1Result Comment: [facility] 2Result Comment: [07/29/2018] 29735-589-01 [facility]: [facility] History: PREVIOUS PCP Medications Astepro Allergy 205.5 mcg/inh (0.15%) nasal spray 2 sprays, Nares, Both, 2 times a day, # 3 each, 3 Refills, Maintenance, 04/01/24 11:12:00 AM EDT, [facility]/pharmacy #[id number], Partial fill upon patient request if the prescription is for a schedule II opioid drug., 2 sprays Nares, Both 2 times a day,x30 days, 149.9, cm, 03/31/24 10:17:00 EDT, Height Start Date: 04/01/24 Stop Date: 07/30/24 Status: Ordered Quantity: 3.0 Unit: each Repeat number: 4 betamethasone-clotrimazole 0.05%-1% topical cream See Instructions, APPLY TO AFFECTED AREA TWICE A DAY, # 15 Gm, 5 Refills, Maintenance, 12/28/22 10:06:00 AM EDT, [facility] STORE 02638, 15, APPLY TO AFFECTED AREA TWICE A DAY, 149.9, cm, 12/20/22 9:51:00 EDT, Height Start Date: 12/28/22 Status: Ordered Quantity: 15.0 Unit: g Repeat number: 1 diclofenac 1% topical gel See Instructions, APPLY TO AFFECTED AREA 4 TIMES A DAY, # 100 Gm, 3 Refills, Maintenance, 05/13/24 4:34:00 PM EDT, [facility] STORE 28621, 25, APPLY TO AFFECTED AREA 4 TIMES A DAY, 149.9, cm, 03/31/24 10:17:00 EDT, Height Start Date: 05/13/24 Status: Ordered Quantity: 100.0 Unit: g Repeat number: 1 fluticasone 50 mcg/inh nasal spray 1 sprays = 50 mcg, Nares, Both, 2 times a day, # 16 Gm, 5 Refills, Maintenance, 04/06/24 4:55:00 PM EDT, [place], [facility]/pharmacy #2339, Partial fill upon patient request if the prescription is for a schedule II opioid drug., 1 sprays Nares, Both 2 times a day, 149.9, cm, 03/31/24 10:17:00 EDT, Height Start Date: 04/06/24 Status: Ordered Quantity: 16.0 Unit: g Repeat number: 6 Home Blood Pressure Monitor See Instructions, # 1 each, Refills 0, Tot. Refills 0, Maintenance, use to check blood pressure daily DX: HTN ht 149.9 wt 93.7 LISET lifetime, 07/02/22 10:50:00 AM EDT, Supply Start Date: 07/02/22 Status: Ordered Quantity: 1.0 Unit: each Repeat number: 1 Indication: Essential (primary) hypertension ibuprofen 600 mg oral tablet 1, tablet, By Mouth, 3 times a day, PRN, # 90 tablet, Refills 5, Maintenance, NEEDED FOR MODERATE PAIN, 08/12/24 10:44:00 AM EST, Route to Pharmacy Electronically, [facility]35, 149.9, cm, 03/31/24 10:17:00 EDT, Height Start Date: 08/12/24 Stop Date: 09/11/24 Status: Ordered Quantity: 90.0 Unit: tablet Repeat number: 1 levothyroxine 125 mcg (0.125 mg) oral tablet 1 tablet, By Mouth, Daily, # 90 tablet, 1 Refills, Maintenance, 08/14/24 9:52:00 AM EST, [facility] STORE 98907, 149.9, cm, 03/31/24 10:17:00 EDT, Height Start Date: 08/14/24 Status: Ordered Quantity: 90.0 Unit: tablet Repeat number: 1 omeprazole 40 mg oral enteric coated capsule 1 capsule, By Mouth, Daily, # 90 capsule, 3 Refills, Maintenance, 09/24/23 9:55:00 AM EST, [facility]/pharmacy #2339, 149.9, cm, 09/24/23 9:35:00 EST, Height Start Date: 09/24/23 Status: Ordered Quantity: 90.0 Unit: capsule Repeat number: 4 Peak Flow Meter See Instructions, # 1 each, Refills 0, Tot. Refills 0, Maintenance, DX: Asthma J45, 01/11/20 2:11:00 PM EDT, Compound, 150, cm, 10/15/19 10:00:00 EST, Height Start Date: 01/11/20 Status: Ordered Quantity: 1.0 Unit: each Repeat number: 1 Qvar Redihaler 80 mcg/inh inhalation aerosol 2 puffs, Inhalation, 2 times a day, # 10.6 Gm, 5 Refills, Maintenance, 04/03/24 4:13:00 PM EDT, A[place], [facility]/pharmacy #2339, Partial fill upon patient request if the prescription is for a schedule II opioid drug., 2 puffs Inhalation 2 times a day, 149.9, cm, 03/31/24 10:17:00 EDT, Height Start Date: 04/03/24 Status: Ordered Quantity: 10.6 Unit: g Repeat number: 6 Right wrist splint Right wrist splint, See Instructions, # 1 each, Refills 0, Tot. Refills 0, Maintenance, wear daily,07/08/20 10:16:00 AM EDT, Supply Start Date: 07/08/20 Status: Ordered Quantity: 1.0 Unit: each Repeat number: 1 Ventolin HFA 108 mcg/inh inhalation aerosol with adapter 1 puffs, Inhalation, 4 times a day, PRN NEEDED FOR WHEEZING, # 18 each, 5 Refills, Maintenance, 01/29/24 10:54:00 AM EDT, [facility], 149.9, cm, 10/22/23 12:12:00 EST, Height Start Date: 01/29/24 Status: Ordered Quantity: 18.0 Unit: each Repeat number: 1 VITAMIN D3 1,000 UNIT SOFTGEL VITAMIN D3 1,000 UNIT SOFTGEL, 1, capsule, By Mouth, 2 times a day, # 180 capsule, 1 Refills, Maintenance, 08/14/24 9:52:00 AM EST, 149.9, cm, 03/31/24 10:17:00 EDT, Height Start Date: 08/14/24 Status: Ordered Quantity: 180.0 Unit: capsule Repeat number: 1 Vitamin D3 1000 intl units oral capsule 1 capsule = 1,000 International_Units, By Mouth, 2 times a day, # 180 capsule, 3 Refills, Maintenance, 09/24/23 9:54:00 AM EST, [facility], 149.9, cm, 09/24/23 9:35:00 EST, Height Start Date: 09/24/23 Status: Ordered Quantity: 180.0 Unit: capsule Repeat number: 4 Problem List Condition Confirmation Course Effective Dates Status H ealth Status Informant Allergic rhinitis Confirmed Active Asthma - Moderate persistent Confirmed 03/15/14 Active Sensorineural hearing loss bilateral Confirmed 03/15/14 Active Generalized OA Confirmed Active GERD (gastroesophageal reflux disease) Confirmed Active Meryl's thyroiditis Confirmed Active Hypertension Confirmed Active Obesity Confirmed Active Severe obesity Confirmed Active Vitamin D deficiency Confirmed Active Social History Social History Type Response Smoking Status Never smoker entered on: 07/29/18 Sex Sex Representation Female (finding) Patient Care team information Care Team Personnel Name: Dana Albarado Position: [facility] Associate Professional Member Role: PCP Address: [address] [place] [address] Telecom: Care Team Related Persons Name: TUAN ABDUL Insurance Providers Guarantor name: [facility] [employer] Plan Information #: 1 Payer: [employer] Member Number: NA Policy Number: NA Group Number: NA
--- OUTSIDE RECORDS SUMMARY | 2024-09-16 04:07 | XMS_ITS | Continuity of Care Document ---
Author Organization [facility] Joel lt Address [address] [place] [address]- Care Team Providers Care Construction Management Instructor Name Role Phone Ladi WHITE, Dana Rutledge Primary Care Physician Encounter [facility] [place] Date(s): 07/27/24 - 08/26/24 [facility] Adult [address] [place] [address]- Encounter Type: Triage Allergies, Adverse Reactions, Alerts [...] vaccine 09/07/14 Given Influenza Vaccine (oldterm) 7 08/17/13 Recorded tetanus/diphtheria/pertussis, acel(Tdap) 05/30/13 Given diphtheria/tetanus/pertussis, acel(DTaP) 06/26/12 Recorded 1Result Comment: [facility] 2Result Comment: [07/29/2018] 72255-178-08 3[facility] Comment[facility]: [facility] History: PREVIOUS PCP Medications Astepro Allergy 205.5 mcg/inh (0.15%) nasal spray 2 sprays, Nares, Both, 2 times a day, # 3 each, 3 Refills, Maintenance, 04/01/24 11:12:00 AM EDT, [facility]/pharmacy #[id number], Partial fill upon patient request if the [...] 5 Refills, Maintenance, 12/28/22 10:06:00 AM EDT, [facility] STORE 89946, 15, APPLY TO AFFECTED AREA TWICE A DAY, 149.9, cm, 12/20/22 9:51:00 EDT, Height Start Date: 12/28/22 Status: Ordered Quantity: 15.0 Unit: g Repeat number: 1 diclofenac 1% topical gel See Instructions, APPLY TO AFFECTED AREA 4 TIMES A DAY, # 100 Gm, 3 Refills, Maintenance, 05/13/24 4:34:00 PM EDT, [facility] STORE 40418, 25, APPLY TO AFFECTED AREA 4 TIMES A DAY, 149.9, cm, 03/31/24 10:17:00 EDT, Height Start Date: 05/13/24 Status: Ordered Quantity: 100.0 Unit: g Repeat number: 1 fluticasone 50 mcg/inh nasal spray 1 sprays = 50 mcg, Nares, Both, 2 times a day, # 16 Gm, 5 Refills, Maintenance, 04/06/24 4:55:00 PM EDT, [place], [facility]/pharmacy #2339, Partial fill upon patient request [...] 10:44:00 AM EST, Route to Pharmacy Electronically, [facility] STORE 89427, 149.9, cm, 03/31/24 10:17:00 EDT, Height Start Date: 08/12/24 Stop Date: 09/11/24 Status: Ordered Quantity: 90.0 Unit: tablet Repeat number: 1 levothyroxine 125 mcg (0.125 mg) oral tablet 1 tablet, By Mouth, Daily, # 90 tablet, 1 Refills, Maintenance, 08/14/24 9:52:00 AM EST, [facility] STORE 91655, 149.9, cm, 03/31/24 10:17:00 EDT, Height Start Date: 08/14/24 Status: Ordered Quantity: 90.0 Unit: tablet Repeat number: 1 omeprazole 40 mg oral enteric coated capsule 1 capsule, By Mouth, Daily, # 90 capsule, 3 Refills, Maintenance, 09/24/23 9:55:00 AM EST, [facility]/pharmacy #2339, 149.9, cm, 09/24/23 9:35:00 EST, [...] Refills, Maintenance, 04/03/24 4:13:00 PM EDT, Aeros[place], [facility]/pharmacy #2339, Partial fill upon patient request [...] Maintenance, 01/29/24 10:54:00 AM EDT, [facility], 149.9, cm, 10/22/23 12:12:00 EST, Height Start [...] Care Team Personnel Name: Dana Albarado Position: [facility] PCO Associate Professional Member Role: PCP Address: [address] [place] [address] Telecom: Care Team Related Persons Name: TUAN ABDUL Insurance Providers Guarantor name: [facility] [employer] Plan Information #: 1 Payer: [employer] [place] Member Number: NA Policy Number: NA Group Number: NA
--- OUTSIDE RECORDS SUMMARY | 2024-09-16 04:07 | XMS_ITS | Continuity of Care Document ---
Author Organization [facility] Joel lt Address [address] [place] [address]- Care Team Providers Care Upper And Bottom Lacer Hand Name Role Phone Ladi WHITE, Dana Rutledge Primary Care Physician Encounter [facility] [place] Date(s): 08/11/24 - 09/10/24 [facility] Adult [address] [place] [address]- Encounter Type: Triage Allergies, Adverse Reactions, Alerts [...] 1Result Comment: [facility] 2Result Comment: [07/29/2018] [id number] 3Result Comment: [facility]14[facility]: [facility] History: PREVIOUS PCP Medications Astepro Allergy 205.5 mcg/inh (0.15%) nasal spray 2 sprays, Nares, Both, 2 times a day, # 3 each, 3 Refills, Maintenance, 04/01/24 11:12:00 AM EDT, [facility]/pharmacy #6950, Partial fill upon patient request if the [...] 5 Refills, Maintenance, 12/28/22 10:06:00 AM EDT, [facility] STORE 55298, 15, APPLY TO AFFECTED AREA TWICE A DAY, 149.9, cm, 12/20/22 9:51:00 EDT, Height Start Date: 12/28/22 Status: Ordered Quantity: 15.0 Unit: g Repeat number: 1 diclofenac 1% topical gel See Instructions, APPLY TO AFFECTED AREA 4 TIMES A DAY, # 100 Gm, 3 Refills, Maintenance, 05/13/24 4:34:00 PM EDT, [facility] STORE 03255, 25, APPLY TO AFFECTED AREA 4 TIMES A DAY, 149.9, cm, 03/31/24 10:17:00 EDT, Height Start Date: 05/13/24 Status: Ordered Quantity: 100.0 Unit: g Repeat number: 1 fluticasone 50 mcg/inh nasal spray 1 sprays = 50 mcg, Nares, Both, 2 times a day, # 16 Gm, 5 Refills, Maintenance, 04/06/24 4:55:00 PM EDT, [place], [facility]/pharmacy #2339, Partial fill upon patient request if [...] 10:44:00 AM EST, Route to Pharmacy Electronically, [facility] STORE 24540, 149.9, cm, 03/31/24 10:17:00 EDT, Height Start Date: 08/12/24 Stop Date: 09/11/24 Status: Ordered Quantity: 90.0 Unit: tablet Repeat number: 1 levothyroxine 125 mcg (0.125 mg) oral tablet 1 tablet, By Mouth, Daily, # 90 tablet, 1 Refills, Maintenance, 08/14/24 9:52:00 AM EST, [facility] STORE 48243, 149.9, cm, 03/31/24 10:17:00 EDT, Height Start Date: 08/14/24 Status: Ordered Quantity: 90.0 Unit: tablet Repeat number: 1 omeprazole 40 mg oral enteric coated capsule 1 capsule, By Mouth, Daily, # 90 capsule, 3 Refills, Maintenance, 09/24/23 9:55:00 AM EST, [facility]/pharmacy #2339, 149.9, cm, 09/24/23 9:35:00 EST, Height [...] Refills, Maintenance, 04/03/24 4:13:00 PM EDT, Aeros[place], [facility]/pharmacy #2339, Partial fill upon patient request if [...] Maintenance, 01/29/24 10:54:00 AM EDT, [facility], 149.9, cm, 10/22/23 12:12:00 EST, Height Start [...] Care Team Personnel Name: Dana Albarado Position: [facility] Associate Professional Member Role: PCP Address: [address] [place] [address] Telecom: Care Team Related Persons Name: TUAN ABDUL Insurance Providers Guarantor name: [facility] [employer] Plan Information #: 1 Payer: [employer] Member Number: NA Policy Number: NA Group Number: NA
--- OUTSIDE RECORDS SUMMARY | 2024-09-16 04:07 | XMS_ITS | Continuity of Care Document ---
Author Organization [facility] Joel lt Address [address] [place] [address]- Care Team Providers Care Project Development Engineer Name Role Phone Ladi WHITE, Dana Rutledge Primary Care Physician [phone] Encounter [facility] [place] Date(s): 07/30/24 - 08/29/24 [facility] Adult [address] [place] [address]- Encounter Type: Triage Allergies, Adverse Reactions, Alerts [...] 1Result Comment: [facility] 2Result Comment: [07/29/2018] [id number] 3Result Comment: [11[facility]14/[facility]: [facility]: PREVIOUS PCP Medications Astepro Allergy 205.5 mcg/inh (0.15%) nasal spray 2 sprays, Nares, Both, 2 times a day, # 3 each, 3 Refills, Maintenance, 04/01/24 11:12:00 AM EDT, [facility]/pharmacy #8404, Partial fill upon patient request if the [...] 5 Refills, Maintenance, 12/28/22 10:06:00 AM EDT, [facility] STORE 80577, 15, APPLY TO AFFECTED AREA TWICE A DAY, 149.9, cm, 12/20/22 9:51:00 EDT, Height Start Date: 12/28/22 Status: Ordered Quantity: 15.0 Unit: g Repeat number: 1 diclofenac 1% topical gel See Instructions, APPLY TO AFFECTED AREA 4 TIMES A DAY, # 100 Gm, 3 Refills, Maintenance, 05/13/24 4:34:00 PM EDT, [facility] STORE 71157, 25, APPLY TO AFFECTED AREA 4 TIMES A DAY, 149.9, cm, 03/31/24 10:17:00 EDT, Height Start Date: 05/13/24 Status: Ordered Quantity: 100.0 Unit: g Repeat number: 1 fluticasone 50 mcg/inh nasal spray 1 sprays = 50 mcg, Nares, Both, 2 times a day, # 16 Gm, 5 Refills, Maintenance, 04/06/24 4:55:00 PM EDT, [place], [facility]/pharmacy #2339, Partial fill upon patient request [...] 10:44:00 AM EST, Route to Pharmacy Electronically, [facility] STORE 80932, 149.9, cm, 03/31/24 10:17:00 EDT, Height Start Date: 08/12/24 Stop Date: 09/11/24 Status: Ordered Quantity: 90.0 Unit: tablet Repeat number: 1 levothyroxine 125 mcg (0.125 mg) oral tablet 1 tablet, By Mouth, Daily, # 90 tablet, 1 Refills, Maintenance, 08/14/24 9:52:00 AM EST, [facility] STORE 34399, 149.9, cm, 03/31/24 10:17:00 EDT, Height Start Date: 08/14/24 Status: Ordered Quantity: 90.0 Unit: tablet Repeat number: 1 omeprazole 40 mg oral enteric coated capsule 1 capsule, By Mouth, Daily, # 90 capsule, 3 Refills, Maintenance, 09/24/23 9:55:00 AM EST, [facility]/pharmacy #2339, 149.9, cm, 09/24/23 9:35:00 EST, [...] Refills, Maintenance, 04/03/24 4:13:00 PM EDT, [place], [facility]/pharmacy #2339, Partial fill upon patient request [...] Maintenance, 01/29/24 10:54:00 AM EDT, [facility], 149.9, cm, 10/22/23 12:12:00 EST, Height Start [...] Team Personnel Name: Dana Albarado Position: [facility] PCO Associate Professional Member Role: PCP Address: [address] [place] [address] Telecom: Care Team Related Persons Name: TUAN ABDUL Insurance Providers Guarantor name: [facility] [employer] Plan Information #: 1 Payer: Clerk [employer] Member Number: NA Policy Number: NA Group Number: NA
== END 2024-09-10 14:43 | disposition home or self-care (01) ==
LOC: HO.HAP 14:42
PROVIDERS: Visit Provider Physician Assistant
DX: Z46.1 Encounter for fitting and adjustment of hearing aid (principal); H90.6 Mixed conductive and sensorineural hearing loss, bilateral
CPT/HCPCS: V5266

== ENCOUNTER 2024-09-28 08:41 | Outpatient (REF) | payer OTHER, SELFPAY | END 2024-09-28 08:42 | disposition home or self-care (01) | LOC: HO.MAMMO 08:41 | PROVIDERS: PCP Physician Assistant; Visit Provider Physician Assistant | DX: Z12.31 Encounter for screening mammogram for malignant neoplasm of breast (principal) | CPT/HCPCS: 77063; 77067 ==

== ENCOUNTER → 2024-09-28 09:30 | Outpatient (BNV) | payer OTHER, SELFPAY | PROVIDERS: PCP Physician Assistant; Visit Provider Internal Medicine | DX: Z12.31 Encounter for screening mammogram for malignant neoplasm of breast (principal) | CPT/HCPCS: 77063; 77067 ==

== ENCOUNTER 2024-12-28 13:58 | Outpatient (REF) | payer OTHER, SELFPAY | END 2024-12-28 13:59 | disposition home or self-care (01) | LOC: HO.HAP 13:58 | PROVIDERS: Visit Provider Physician Assistant | DX: Z46.1 Encounter for fitting and adjustment of hearing aid (principal); H90.6 Mixed conductive and sensorineural hearing loss, bilateral | CPT/HCPCS: V5266 ==

== ENCOUNTER 2025-02-04 14:56 | Outpatient (REF) | payer OTHER, SELFPAY ==
--- NOTE | 2025-02-04 15:29 | MHC.AU.HA3 ---
Hearing Instrument Follow-Up- Binaural Date of Visit: 02/04/25 Right Ear: Weston, , Color, Serial Number: Wallace Kelly M70-SP, Crystal Serial#[id number] Service Now Developer Repair Warranty: 08/10/2023 Service Now Developer Loss and Damage Warranty: 08/10/2023 [facility] Service Plan: 05/19/2021 Battery Size: 13 Nuclear Reactor Technician/Slim Tube: Earmold/Dome/CShell/SlimTip:Microsonic silicone shell Type of Wax Guard: Dispensed By: [facility] Date of Fittin05/19/2020 Left Ear: Weston, Model, Color, Serial Number: Wallace Kelly M70-SPCrystal Serial#[id number] Service Now Developer Repair Warranty: 08/10/2023 Service Now Developer Loss and Damage Warranty: 08/10/2023 [facility] Service Plan: 05/19/2021 Battery Size: 13 Nuclear Reactor Technician/Slim Tube: Earmold/Dome/CShell/SlimTip: Microsonic silicone shell Type of Wax Guard: Dispensed By: [facility] Date of Fittin05/19/2020 Follow-Up Summary: Here for tubing change, both tubes very hard. Cleaned EMs, hearing aids, replaced tubes with dry-tubes tin hopes of needing less frequent changes. Follow up as needed, is interested in HAE when eligible in May, aware she will need order for audio. Recommendations: Recommendations: Hearing instrument follow-up or maintenance as needed. Diagnosis Code(s): Primary Diagnosis: H90.6 Mixed Hearing Loss, Bilateral Signature: Provider: Marina Skinner, [facility]
--- OUTSIDE RECORDS SUMMARY | 2025-02-04 16:53 | XMS_ITS | Clinical Summary ---
Author Organization 175 [facility] Address 175 [place] [address] Phone Care Team Providers Care Tableau Report Developer Name Role Phone Dana Bledsoe Primary Care Provider [phone] Allergies No known active allergies Medications clotrimazole (LOTRIMIN) 1 % cream Apply to skin and toenails daily for 12 weeks Active Social History Tobacco Use Types Packs/Day Years Used Date Smoking Tobacco: Never Assessed Comments Unknown Sex and Gender Information Value Date Recorded Sex Assigned at Not on file Legal Sex Female 11:04 AM EDT Gender Identity Not on file Sexual Orientation Not on file Last Filed Vital Signs Vital Sign Reading Time Taken Comments Blood Pressure - - Pulse - - Temperature - - Respiratory Rate - - Oxygen Saturation - - Inhaled Oxygen Concentration - - Weight 98 kg (216 lb) 10/27/2024 10:02 AM EST Height 149.9 cm (4' 11.02 ) 10/27/2024 10:02 AM EST Body Mass Index 43.6 10/27/2024 10:02 AM EST Plan of Treatment Upcoming Encounters Date Type Department Care Team (Late st Contact Info) Description 04/26/2025 10:00 AM EDT Office Visit Orthopedic Surgery [facility] [address] [phone] Narendra Talamantes DPM [address] [address] Health Maintenance Due Date Last Done Comments Breast Cancer Screening 1969 Hepatitis B Vaccines (1 of 3 - 19+ 3-dose series) 1988 Cervical Cancer Screening: Pap Smear 1990 Pneumococcal Vaccine: 50+ Years (2 of 2 - PCV) 09/07/2015 09/07/2014 Pneumococcal Vaccine: Pediatrics (0 to 5 Years) and At-Risk Patients (6 to 64 Years) (2 of 2 - PCV) 09/07/2015 09/07/2014 Cholesterol Screening (Lipid Panel) 04/30/2024 Colorectal Cancer Screening: Colonoscopy 04/30/2024 Depression Screening 04/30/2024 HIV Screening 04/30/2024 Hepatitis C Screening 04/30/2024 Social Influencers of Health Screening 04/30/2024 COVID-19 Vaccine (3 - season) 2024 02/23/2021, 02/02/2021 Hypertension/CHF/CAD Annual BMP Blood Test 08/13/2024 Influenza Vaccine (Season Ended) 2025 08/03/2022, 06/19/2021, 06/19/2021, Additional history exists DTaP,Tdap,and Td Vaccines (4 - Td or Tdap) 06/16/2030 06/16/2020, 05/30/2013, 06/26/2012 Zoster Vaccines Completed 11/18/2023, 11/05/2022 HIB Vaccines Aged Out No longer eligi ble based on patient's age to complete this topic HPV Vaccines Aged Out No longer eligi ble based on patient's age to complete this topic Hepatitis A Vaccines Aged Out No long er eligible based on patient's age to complete this topic IPV Vaccines Aged Out No longer eligi ble based on patient's age to complete this topic MMR Vaccines Aged Out No longer eligi ble based on patient's age to complete this topic Meningococcal ACWY Vaccine Aged Out N o longer eligible based on patient's age to complete this topic Meningococcal B Vaccine Aged Out No l onger eligible based on patient's age to complete this topic RSV Immunization Patients Under 20 months Aged Out No longer eligible based on patient's age to complete this topic Varicella Vaccines Aged Out No longer eligible based on patient's age to complete this topic Insurance [employer] MEDICA[employer] ADVANTAGE [address] [place] [address] Care Teams Tableau Report Developer Relationship Specialty Start Date End Date Dana Bledsoe PA [address] PCP - General 12/20/23
== END 2025-02-04 14:57 | disposition home or self-care (01) ==
LOC: HO.HAP 14:56
PROVIDERS: PCP Physician Assistant; Visit Provider Physician Assistant
DX: Z46.1 Encounter for fitting and adjustment of hearing aid (principal); H90.6 Mixed conductive and sensorineural hearing loss, bilateral
CPT/HCPCS: 92593; 99499

== ENCOUNTER 2025-03-02 15:29 | Outpatient (REF) | payer OTHER, SELFPAY ==
--- OUTSIDE RECORDS SUMMARY | 2025-03-02 15:32 | XMS_ITS | Clinical Summary ---
Author Organization 175 [facility] Address 175 [place] [address] Phone Care Team Providers Care Stress Analyst Name Role Phone Dana Bledsoe Primary Care Provider [phone] Allergies No known active allergies Medications clotrimazole [...] 10:00 AM EDT Office Visit Orthopedic Surgery [facility] [address] [phone] Narendra Talamantes DPM [address] [address] Health Maintenance Due Date Last Done Comments [...] Insurance [employer]AGE [address] [place] [address] Care Teams Stress Analyst Relationship Specialty Start Date End Date Dana Bledsoe PA [address] PCP - General 12/20/23
== END 2025-03-02 15:30 | disposition home or self-care (01) ==
LOC: HO.HAP 15:29
PROVIDERS: Visit Provider Physician Assistant
DX: Z46.1 Encounter for fitting and adjustment of hearing aid (principal); H90.6 Mixed conductive and sensorineural hearing loss, bilateral
CPT/HCPCS: V5266

== ENCOUNTER 2025-05-05 13:06 | Outpatient (REF) | payer OTHER, SELFPAY ==
--- OUTSIDE RECORDS SUMMARY | 2025-05-02 23:59 | XMS_ITS | Continuity of Care Document ---
Author Organization [facility] Address [address] [place] [address]- Care Team Providers Care Value Advisor Name Role Phone Ladi WHITE, Dana Rutledge Primary Care Physician Encounter [facility] [place] Date(s): 04/02/25 - 05/02/25 [facility] [address] [place] [address]- Encounter Type: Triage Allergies, Adverse Reactions, Alerts [...] Given diphtheria/tetanus/pertussis, acel(DTaP) 06/26/12 Recorded 1Result Comment: [facility] 2Result Comment: [07/29/2018] [id number] 3[facility] Comment[facility]14/2016[facility]: [facility]: [facility]: PREVIOUS PCP Medications Astepro Allergy 205.5 mcg/inh (0.15%) nasal spray 2 sprays, Nares, Both, 2 times a day, # 3 each, 3 Refills, Maintenance, 04/01/24 11:12:00 AM EDT, [facility]/pharmacy #[id number], Partial fill upon patient [...] 5 Refills, Maintenance, 12/28/22 10:06:00 AM EDT, [facility] STORE [id number], 15, APPLY TO AFFECTED AREA TWICE A DAY, 149.9, cm, 12/20/22 9:51:00 EDT, Height Start Date: 12/28/22 Status: Ordered Quantity: 15.0 Unit: g Repeat number: 1 diclofenac 1% topical gel See Instructions, APPLY TO AFFECTED AREA 4 TIMES A DAY, # 100 Gm, 0 Refills, Maintenance, 04/26/25 7:14:00 AM EDT, [facility]/pharmacy #[id number], 50, Please ask patient to call the office and schedule an appt for further refills, APPLY TO AFFECTED AREA 4 TIMES A DAY, 149.9, cm, 03/31/24 10:17:00 EDT, Height Start Date: 04/26/25 Status: Ordered Quantity: 100.0 Unit: g Repeat number: 1 fluticasone 50 mcg/inh nasal spray 1 sprays = 50 mcg, Nares, Both, 2 times a day, # 16 Gm, 5 Refills, Maintenance, 04/06/24 4:55:00 PM EDT, [place], [facility]/pharmacy #[id number], Partial fill upon patient [...] Quantity: 1.0 Unit: each Repeat number: 1 Indications: Essential (primary) hypertension; ibuprofen 800 mg oral tablet 800 mg, 1, tablet, By Mouth, 3 times a day, PRN, for 30 days, # 90 tablet, Refills 5, Tot. Refills 5, Acute 08/03/25 8:55:00 AM EDT, Pain , Moderate, 02/04/25 8:55:00 AM EDT, Route to Pharmacy Electronically, [facility]/pharmacy #[id number], Partial fill upon patient request if the prescription is for a schedule II opioid drug., 149.9, cm, 03/31/24 10:17:00 EDT, Height Start Date: 02/04/25 Stop Date: 08/03/25 Status: Ordered Quantity: 90.0 Unit: tablet Repeat number: 6 levothyroxine 125 mcg (0.125 mg) oral capsule 1 capsule = 125 mcg, By Mouth, Daily, # 90 capsule, 3 Refills, Maintenance, 04/29/25 11:24:00 AM EDT, Capsule, [facility]/pharmacy #[id number], Partial fill upon patient request if the prescription is for a schedule II opioid drug., 149.9, cm, 04/29/25 10:21:00 EDT, Height Start Date: 04/29/25 Stop Date: 04/24/26 Status: Ordered Quantity: 90.0 Unit: capsule Repeat number: 4 ofloxacin 0.3% otic solution 5, drops, Ears, Both, 2 times a day, Left ear only for 7 days, # 5 mL, Refills 0, Tot. Refills 0, Acute, 05/06/25 11:00:00 AM EDT, 04/29/25 11:00:00 AM EDT, Route to Pharmacy Electronically, [facility]/pharmacy #[id number] Solution, Partial fill upon patient request if the prescription is for a schedule II opioiddrug., 149.9, cm, 04/29/25 10:21:00 EDT, Height Start Date: 04/29/25 Stop Date: 05/06/25 Status: Ordered Quantity: 5.0 Unit: mL Repeat number: 1 omeprazole 40 mg oral enteric coated capsule 1 capsule, By Mouth, Daily, # 90 capsule, 1 Refills, Maintenance, 03/23/25 6:55:00 AM EDT, [facility] [id number], 149.9, cm, 03/31/24 10:17:00 EDT, Height Start Date: 03/23/25 Status: Ordered Quantity: 90.0 Unit: capsule Repeat number: 1 Peak Flow Meter See Instructions, # 1 [...] Refills, Maintenance, 04/03/24 4:13:00 PM EDT, Aerosol, [facility]/pharmacy #[id number], Partial fill upon patient [...] WHEEZING, # 18 each, 5 Refills, Maintenance, 11/18/24 8:20:00 AM EST, [id number], 149.9, cm, 03/31/24 10:17:00 EDT, Height Start Date: 11/18/24 Status: Ordered Quantity: 18.0 Unit: each Repeat number: 1 VITAMIN D3 1,000 UNIT SOFTGEL VITAMIN D3 1,000 UNIT SOFTGEL, 1, capsule, By Mouth, 2 times a day, # 180 capsule, 1 Refills, Maintenance, 03/14/25 4:28:00 PM EDT, 149.9, cm, 03/31/24 10:17:00 EDT, Height Start Date: 03/14/25 Status: Ordered Quantity: 180.0 Unit: capsule Repeat number: 1 VITAMIN D3 1,000 UNIT [...] 3 Refills, Maintenance, 09/24/23 9:54:00 AM EST, [facility]/pharmacy #[id number], 149.9, cm, 09/24/23 9:35:00 [...] Care Team Personnel Name: Dana Albarado Position: S PCO Associate Professional Member Role: PCP Address: [address] [place] [address]- [place] Telecom: Care Team Related Persons Name: TUAN ABDUL Insurance Providers Guarantor name: MACK [facility] [employer] Plan Information #: 1 Payer: [employer] [place] Payer Identifier: [id number] Member Number: [id number] Group Number: [id number] Subscriber Identifier: [id number] Relationship to Subscriber: self Coverage Type: Medicaid (Managed Care) Coverage Verification Date: NA Telecom: NA Address:
--- OUTSIDE RECORDS SUMMARY | 2025-05-05 13:41 | XMS_ITS | Clinical Summary ---
Author Organization [address] [place] [address] Address [address] [place] [address] Phone Care Team Providers Care Resident Services Supervisor Name Role Phone Dana Bledsoe Primary Care Provider [phone] Allergies No known active allergies Medications clotrimazole (LOTRIMIN) 1 % cream Apply to skin and toenails daily for 12 weeks Active Encounters Date Type Department Care Team Description 04/26/2025 10:00 AM EDT Office Visit Orthopedic Surgery [address] [phone] Narendra Talamantes, DPM Peroneal tendonitis, right (Primary Dx); Follow-up examination; Dermatophytosis of nail; Difficulty walking; Pain in toe of right foot; Pain in toe of left foot from Last 3 Months Social History Tobacco Use Types Packs/Day Years [...] Upcoming Encounters Date Type Department Care Team ([facility] Contact Info) Description 07/29/2025 10:15 AM EDT Office Visit Orthopedic Surgery [address] [phone] Narendra Talamantes, DPJolie 175 [facility] [address] [place] [address] Health Maintenance Due Date Last Done Comments Breast Cancer Screening 1969 Hepatitis B Vaccines (1 of 3 - 19+ 3-dose series) 1988 Cervical Cancer Screening: Pap Smear 1990 Pneumococcal Vaccine: 50+ Years (2 of 2 - PCV) 09/07/2015 09/07/2014 Cholesterol Screening (Lipid Panel) 04/30/2024 Colorectal Cancer Screening: Colonoscopy 04/30/2024 HIV Screening 04/30/2024 Hepatitis C Screening 04/30/2024 Social Influencers of Health Screening 04/30/2024 COVID-19 Vaccine ( season) 2024 02/23/2021, 02/02/2021 Hypertension/CHF/CAD Annual BMP Blood Test 08/13/2024 Depression Screening 10/07/2024 Influenza Vaccine (#1) 2025 2, 06/19/2021, 06/19/2021, Additional history exists DTaP,Tdap,and Td [...] on patient's age to complete this topic Procedures Procedure Name Priority Date/Time Associated Diagnosis Comments XR ANKLE 3+ VIEWS RIGHT Routine 04/26/2025 10:30 AM EDT Follow-up examination from Last 3 Months Results * XR Ankle 3+ Views Right (04/26/2025 10:30 AM EDT) Anatomical Region Laterality Modality Lower Extremities, Ankle Right Compute d Radiography Narrative 04/26/2025 12:10 PM EDT Right ankle 3 views Appropriate alignment of the mortise no joint space narrowing normal tib-fib overlap Normal x-rays well aligned no signs of fracture or foreign body us Narendra Talamantes DPM IMG XR PROCEDURES Final R esult from Last 3 Months Insurance [facility] MEDICAID ADVANTAGE Care Teams Resident Services Supervisor Relationship Specialty Start Date End Date Dana Bledsoe PA [address] PCP - General 12/20/23
== END 2025-05-05 13:07 | disposition home or self-care (01) ==
LOC: HO.HAP 13:06
PROVIDERS: Visit Provider Physician Assistant
DX: Z46.1 Encounter for fitting and adjustment of hearing aid (principal)
CPT/HCPCS: V5266

== ENCOUNTER 2025-06-24 13:52 | Outpatient (REF) | payer OTHER, SELFPAY ==
--- OUTSIDE RECORDS SUMMARY | 2025-06-24 15:56 | XMS_ITS | Clinical Summary ---
Author Organization [address] [place] [address] Address [address] [place] [address] Phone Care Team Providers Care Senior Linux Administrator Name Role Phone Dana Bledsoe Primary Care Provider [phone] Allergies No known active allergies Medications clotrimazole (LOTRIMIN) 1 % cream Apply to skin and toenails daily for 12 weeks Active Encounters Date Type Department Care Team Description 04/26/2025 10:00 AM EDT Office Visit Orthopedic Surgery [address] [phone] Narendra Talamantes, DPM Peroneal tendonitis, right (Primary [...] Upcoming Encounters Date Type Department Care Team ([facility] Contact Info) Description 07/29/2025 10:15 AM EDT Office Visit Orthopedic Surgery [address] [phone] Narendra Talamantes, DPM 175 [facility] [address] [place] [address] Health Maintenance Due Date Last Done Comments Breast Cancer Screening 1969 Hepatitis B Vaccines (1 of 3 - 19+ 3-dose series) 1988 Cervical Cancer Screening: Pap Smear 1990 Pneumococcal Vaccine: 50+ Years (2 of 2 - PCV) 09/07/2015 09/07/2014 Cholesterol Screening (Lipid Panel) 04/30/2024 Colorectal Cancer Screening: Colonoscopy 04/30/2024 HIV Screening 04/30/2024 Hepatitis C Screening 04/30/2024 Social Influencers of Health Screening 04/30/2024 Hypertension/CHF/CAD Annual BMP Blood Test 08/13/2024 Depression Screening 10/07/2024 COVID-19 Vaccine ( - season) 2025 02/23/2021, 02/02/2021 Influenza Vaccine (#1) 2025 2, 06/19/2021, 06/19/2021, [...] signs of fracture or foreign body us aNrendra Talamantes DPM IMG XR PROCEDURES Final R esult from Last 3 Months Insurance [facility] MEDICAID ADVANTAGE [address] [place] [address] Care Teams Senior Linux Administrator Relationship Specialty Start Date End Date Dana Bledsoe PA [address] PCP - General 12/20/23
== END 2025-06-24 13:53 | disposition home or self-care (01) ==
LOC: HO.HAP 13:52
PROVIDERS: Visit Provider Physician Assistant
DX: Z46.1 Encounter for fitting and adjustment of hearing aid (principal); H90.6 Mixed conductive and sensorineural hearing loss, bilateral
CPT/HCPCS: V5266

== ENCOUNTER 2025-07-26 13:07 | Outpatient (REF) | payer OTHER, SELFPAY ==
--- NOTE | 2025-07-26 14:07 | MHC.AU.MED ---
Medical Clearance for Hearing Instrumentation Date: 07/26/25 Patient Name: Aleida Olmstead Date of : 1970 Primary Care Provider: CINDY Bean (Please have signed by supervising physician) We have seen your patient on 07/26/25 and have determined that they are a candidate for amplification (See accompanying report). Specifically, they would benefit from: Hearing aid use in both ears There is a statute that addresses Medical Evaluation Requirements prior to fitting a patient with a hearing aid. According to [place] statute 265 CMR:6.03(1), (a) General. Except as provided in 265 CMR 6.03(1)(b), a dials supervisor shall not sell a hearing aid unless the prospective user has presented to the dials supervisor a written statement signed by a licensed physician that states that the patient's hearing loss has been medically evaluated and the patient may be considered a candidate for a hearing aid. The medical evaluation must have taken place within the preceding six months. Please note: Due to the [place] Statute referenced above, we cannot accept a signature other than that of a licensed physician. VENDOR MANAGER and PA signatures cannot be accepted. I am in agreement with the above recommendation. There is no medical contraindication for hearing instrumentation. Physician Signature Date Physician Name (Printed)
--- NOTE | 2025-07-26 14:57 | MHC.AU.HA1 ---
Hearing Aid Evaluation Date of Visit: 07/26/25 Historical Information: Description of Hearing: Right Ear: Severe mixed hearing loss; Left Ear: Severe to profound mixed hearing loss Current personal amplification information: Phonak Leticia M70-SP BTEs fit in May 2020 Summary: Ready to pursue new HAs to better facilitate communication. Current HAs >5 years old and reportedly 'maxed out;' Aleida cannot increase volume any further and she is still having difficulty following and understanding conversations. Discussed new HAs. Opted for same standard BTE style, agreeable to larger BTE portion with size 675 battery. EMs still fit well - will order duplicate from impressions on file. Needs medical clearance and PA via [facility] [employer]. Hearing Aid Prescription: Based on the individual?s shared listening needs, communication environments, dexterity, desire for connectivity, and personal preferences, the following prescription for amplification has been made: Right ear: Make, Model, Color: Phonak Leticia L70-UP Color: [place] Battery Size: 675 Type of Earmold/Dome/CShell/SlimTip: Microsonic M35 full shell Left ear: Left ear prescription to be same as Right Hearing Aid above: Make, Model, Color: Phonak Leticia L70-UP Color: [place] Battery Size: 675 Type of Earmold/Dome/CShell/SlimTip: Microsonic M35 full shell Plan of Care: Patient wishes to purchase hearing aids as prescribed Action Taken/Action Needed: Prior authorization to be requested. Medical Clearance to be requested from PCP/ENT. Hearing Instrument Fitting to be scheduled when materials arrive Primary Diagnosis: H90.6 Mixed Hearing Loss, Bilateral Signature: Provider: Jovan Elizondo, [facility]
== END 2025-07-26 13:08 | disposition home or self-care (01) ==
LOC: HO.SH 13:07
PROVIDERS: Visit Provider Physician Assistant
DX: Z01.118 Encounter for examination of ears and hearing with other abnormal findings (principal); Z46.1 Encounter for fitting and adjustment of hearing aid; H90.6 Mixed conductive and sensorineural hearing loss, bilateral
CPT/HCPCS: 92557; 92591

== ENCOUNTER 2025-08-10 13:31 | Outpatient (REF) | payer OTHER, SELFPAY | END 2025-08-10 13:32 | disposition home or self-care (01) | LOC: HO.HAP 13:31 | PROVIDERS: Visit Provider Physician Assistant | DX: Z46.1 Encounter for fitting and adjustment of hearing aid (principal); H90.6 Mixed conductive and sensorineural hearing loss, bilateral | CPT/HCPCS: V5266 ==

== ENCOUNTER 2025-09-17 15:13 | Outpatient (REF) | payer OTHER, SELFPAY ==
--- OUTSIDE RECORDS SUMMARY | 2025-09-17 20:12 | XMS_ITS | Clinical Summary ---
Author Organization 175 [facility] Address [address] [place] [address] Phone Care Team Providers Care Investment Advisor Name Role Phone Dana Bledsoe Primary Care Provider [phone] Allergies No known active allergies Medications clotrimazole (LOTRIMIN) 1 % cream Apply to skin and toenails daily for 12 weeks Active Encounters Date Type Department Care Team Description 07/29/2025 10:15 AM EDT Office Visit Orthopedic [place] [address] [phone] Narendra Talamantes, DPM Disorder of ligament of right foot (Primary Dx); Primary osteoarthritis of both feet; Dermatophytosis of nail; Difficulty walking; Pain in [...] Concentration - - Weight 98 kg (216 lb 0.8 oz) 07/29/2025 10:13 AM EDT Height 149.9 cm (4' 11.02 ) 07/29/2025 10:13 AM EDT Body Mass Index 43.61 07/29/2025 10:13 AM EDT Plan of Treatment Upcoming Encounters Date Type Department Care Team ([facility] st Contact Info) Description 11/02/2025 10:15 AM EST Office Visit Orthopedic [facility] [address] [phone] Narendra Talamantes, DPM 175 [facility] [address] [place] [address] Health Maintenance Due Date Last Done Comments Breast Cancer Screening 1970 Colorectal Cancer Screening: Colonoscopy 1969 Hepatitis B Vaccines (1 of 3 - 19+ 3-dose series) 1988 Cervical Cancer Screening: Pap Smear 1990 Pneumococcal Vaccine: 50+ Years (2 of 2 - PCV) 09/07/2015 09/07/2014 RSV Immunization Adult Patients (1 - Risk 50-74 years 1-dose series) 2019 Cholesterol Screening (Lipid Panel) 04/30/2024 HIV Screening 04/30/2024 Hepatitis C Screening 04/30/2024 Social Influencers of Health Screening 04/30/2024 Hypertension/CHF/CAD Annual BMP Blood Test 08/13/2024 Depression Screening 10/07/2024 COVID-19 Vaccine (3 - 2024- season) 2025 02/23/2021, 02/02/2021 Influenza Vaccine (#1) 2025 2, 06/19/2021, 07/21/2019, Additional history exists DTaP,Tdap,and Td Vaccines (4 [...] Procedure Name Priority Date/Time Associated Diagnosis Comments INJECTION TENDON OR LIGAMENT Routine 07/29/2025 10:15 AM EDT Disorder of ligament of right foot from Last 3 Months Results * Injection tendon or ligament (07/29/2025 10:15 AM EDT) Narendra Rojas DPM - 07/29/2025 10:15 AM EDT Narendra Talamantes DPM 07/29/2025 12:40 PM Injection tendon or ligament Indications: pain Details: 25 G needle Medications: 0.5 mL lidocaine (PF) 1 %; 20 mg triamcinolone acetonide 40 mg/mL Informed Consent: Site: Foot ligament tendon us Narendra Talamantes DPM IN CLINIC/BEDSIDE ORDERAB LES Final Result from Last 3 Months Insurance [facility] MEDICAID ADVANTAGE [address] [place] [address] Care Teams Investment Advisor Relationship Specialty Start Date End Date Dana Bledsoe PA [facility] [address] [place] [place], [place] PCP - General 12/20/23
== END 2025-09-17 15:14 | disposition home or self-care (01) ==
LOC: HO.HAP 15:13
PROVIDERS: Visit Provider Physician Assistant
DX: Z46.1 Encounter for fitting and adjustment of hearing aid (principal)
CPT/HCPCS: V5266